=== PATIENT | male | born 1985 | race Caucasian/White ===

== ENCOUNTER 2019-02-14 22:20 | Emergency (ER) | payer BC ==
[~2019-02-14] VITALS: Ht 193 cm; Wt 133.8 kg
[2019-02-14] MEDS ORDERED: ASPIRIN325 MG PO (22:34)
[2019-02-15] MEDS ORDERED: PROTONIX40 MG PO (00:42)
--- NOTE | 2019-02-15 07:06 | EKG ---
[facility] [address] [facility] [place], [place] [address] Signed Sinus bradycardia with sinus arrhythmia Otherwise normal ECG No previous ECGs available Confirmed by JUAN PHILLIPS MD [id number] on 02/15/2019 7:06:50 AM Electronically Signed By: JUAN PHILLIPS MD 02/15/19705 PATIENT NAME: MANDEEP TRAN Electrocardiogram DATE OF : 81 PHYSICIAN: JUAN PHILLIPS MD REPORT #: [id number] REPORT IS CONFIDENTIAL AND NOT TO BE RELEASED WITHOUT AUTHORIZATION
== END 2019-02-15 00:58 | disposition home or self-care (01) ==
LOC: ED 22:20
DX: R07.89 Other chest pain (principal)
CPT/HCPCS: 71045; 80053; 83735; 84484; 85025; 93005; 93010; 99285-25

== ENCOUNTER 2024-04-24 12:32 | Emergency (ER) | payer BC ==
[~2024-04-24] VITALS: Ht 193 cm; Wt 136.0 kg
[~2024-04-24 12:32] MED LIST: ASPIRIN325 MG PO; PROTONIX40 MG PO
[2024-04-24] MEDS ORDERED: ALLOPURINOL100 MG PO (13:59)
[2024-04-24] MEDS ORDERED: PANTOPRAZOLE SODIUM 40 MG TABEC PO ONE (14:45)
[2024-04-24] MEDS ORDERED: PANTOPRAZOLE SO40 MG PO (16:07)
[2024-04-24 16:20] VITALS: BP 160/99
== END 2024-04-24 16:21 | disposition home or self-care (01) ==
LOC: ED 12:32
DX: K21.9 Gastro-esophageal reflux disease without esophagitis (principal); J38.5 Laryngeal spasm; Z79.82 Long term (current) use of aspirin; Z79.899 Other long term (current) drug therapy
CPT/HCPCS: 71045; 99284-25; A9270